=== PATIENT | male | born 1965 | race Caucasian/White ===

== ENCOUNTER → 2025-11-04 10:50 | Outpatient (REF) | payer OTHER, SELFPAY ==
[2025-11-04 12:44] LABS: ALT (SGPT) 60 U/L (0-50); AST (SGOT) 35 U/L (17-59); Albumin 4.6 g/dl (3.5-5.0); Alkaline Phosphatase 62 U/L (38-126); Blood Urea Nitrogen 17 mg/dl (9-20); Calcium 9.1 mg/dl (8.4-10.2); Carbon Dioxide 27 mmol/L (22-30); Chloride 104 mmol/L (98-107); Glucose 109 mg/dl (70-99); HDL Cholesterol 28 mg/dl; LDL Cholesterol, Calculated 141 mg/dl; Potassium 4.6 mmol/L (3.5-5.1); Sodium 138 mmol/L (135-145); Total Protein 7.5 g/dl (6.3-8.2); Very Low Density Lipoprotein 53 mg/dl (0-30); eGFR > 60.00
[2025-11-04 12:58] LABS: Glycohemoglobin (HgbA1c) 5.9 % (4.0-5.9)
[2025-11-06 19:36] LABS: Lipoprotein a (Lp a) 10 mg/dL (<=29)
== END ==
LOC: REG 10:50
PROVIDERS: ATTENDING PHYSICIAN Internal Medicine; FAMILY PHYSICIAN Family Medicine
DX: E78.5 Hyperlipidemia, unspecified (principal); Z82.49 Family history of ischemic heart disease and other diseases of the circulatory system
CPT/HCPCS: 36415; 80053; 80061; 83036; 83695